=== PATIENT | female | born 1950 | race Hispanic/Latino ===

== ENCOUNTER → 2021-12-16 | Outpatient (CLI) | payer OTHER | END | disposition home or self-care (01) | LOC: SHCH 13:01 | PROVIDERS: ATTEND Internal Medicine Cardiovascular Disease | DX: I87.2 Venous insufficiency (chronic) (peripheral) (principal) | CPT/HCPCS: 93970 ==

== ENCOUNTER → 2023-12-05 | Outpatient (CLI) | payer OTHER | END | disposition home or self-care (01) | LOC: SHCH 12:48 | PROVIDERS: ATTEND Internal Medicine Cardiovascular Disease | DX: I87.2 Venous insufficiency (chronic) (peripheral) (principal) | CPT/HCPCS: 93971 ==

== ENCOUNTER → 2024-11-30 | Outpatient (CLI) | payer OTHER ==
[~2024-11-30] MED LIST: IOHEXOL 350 MG/ML 100ML INFUS..BTL IV ONE
--- NOTE | 2024-12-02 16:41 | CARDIOLOGY ---
RAD REPORT: [facility] CT ANGIO RADIOLOGY REPORT: CORONARY CT ANGIOGRAPHY DATE: Nov 30, 2024 QUALITY: Excellent CLINICAL HISTORY AND INDICATION: [ chest pain ] TECHNIQUE: After obtaining a preliminary digital photo printer image, contrast imaging performed on an [employer] [id number] scanner. A dedicated, limited window, coronary imaging protocol was used, with single breath-hold, retrospective ECG gating, and automated arrhythmia rejection. 100 cc of low osmolar contrast agent: Omnipaque 350 was delivered via a 18-gauge IV catheter in the right antecubital fossa, using a power injector and followed by 60 cc of normal saline bolus as a chaser. Collimated images were reformatted at 0.5 mm intervals, and sent to an offline independent workstation for interpretation, using 3D anatomic reconstructions: Curved multiplanar reconstructions, maximum intensity projections, and multiplanar imaging. 5 mg IV metoprolol was administered prior to scanning. 0.4 mg SL nitroglycerin was given. CORONARY ARTERY DESCRIPTIONS: The coronary arteries arise in normal position. Left main coronary artery: Normal caliber vessel that bifurcates into the LAD and LCx. There is non-calcified plaque in the mid to distal left main with 20- 30% stenosis. Left anterior descending coronary artery: Normal caliber vessel and gives rise to diagonal and septal branches. There is mixed calcified and noncalcified plaque in the mid LAD with 70-80% stenosis. Left circumflex coronary artery: Normal caliber, nondominant and gives rise to a large OM branch. The LCx is not well visualized due to motion artifact. Right coronary artery: Large, dominant vessel giving rise to the PL and PDA branches. The RCA is heavily calcified proximally with 60-70% stenosis. This study quality is limited by motion artifact from ectopy. Thoracic Aorta: Normal diameter. Alexus Wu MD Cardiovascular Disease [facility] ALEXUS WU MD Dec 02, 2024 16:41
== END | disposition home or self-care (01) ==
LOC: RAH 08:14
PROVIDERS: ATTEND Internal Medicine Cardiovascular Disease
DX: I25.10 Atherosclerotic heart disease of native coronary artery without angina pectoris (principal); R07.9 Chest pain, unspecified
CPT/HCPCS: 75574; J3490; Q9967

== ENCOUNTER 2025-01-09 05:43 | Day surgery (SDC) | payer OTHER ==
[2025-01-07 10:35] VITALS: BP 152/71; PULSE 67; RESP 18; TEMP 97.4
[2025-01-07 10:38] LABS: IMMATURE GRANULOCYTE ABSOLUTE 0.02 K/uL (0-1); NUCLEATED RED BLOOD CELLS 0.0 % (0.0-0.19); PLATELET COUNT (AUTO) 192 K/uL (130-400); RED BLOOD CELL COUNT(AUTO) 5.28 MIL/uL (4.00-5.50); RED CELL DISTRIBUTION WIDTH 14.2 % (11.0-15.5); WHITE BLOOD COUNT (AUTO) 5.8 K/uL (4.8-10.8)
[2025-01-07 10:40] LABS: APPEARANCE,URINE CLEAR (CLEAR); GLUCOSE, URINE (UA) NEGATIVE (NEGATIVE); LEUKOCYTE ESTERASE ,URINE NEGATIVE Leu/uL (NEGATIVE); NITRATE,URINE NEGATIVE (NEGATIVE); OCCULT BLOOD,URINE +- (TRACE) (NEGATIVE)
[2025-01-07 10:42] LABS: ADD UA MICROSCOPIC YES; SQUAMOUS EPITHELIAL CELL,UR Rare /HPF (0-2)
--- NOTE | 2025-01-07 10:45 | EKG ---
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
[2025-01-07 10:55] LABS: CREATININE 0.9 mg/dL (0.5-1.0); GLOMERULAR FILTR. RATE CALC 67.0 mL/min (>90); GLUCOSE,RANDOM 106.0 mg/dL (70-105); SODIUM SERUM 138.0 mmol/L (136-145); UREA NITROGEN, BLOOD 18.0 mg/dL (7-18)
[2025-01-07 11:22] LABS: INR 0.97 (0.85-1.15)
--- NOTE | 2025-01-07 11:32 | HMCIMG ---
CHEST 1VW REASON: PRE OP COMPARISON: None available FINDINGS: Single view of the chest was obtained. There is hyperaeration of lungs with flattening of both hemidiaphragms suggesting of early chronic obstructive disease Lungs are clear. Heart size is normal. There is uncoiling atherosclerotic change of thoracic aorta. There is no pulmonary vascular congestion. Mediastinum and bony thorax appear unremarkable. Mild osteopenia of the bony thorax. IMPRESSION: 1. Early chronic obstructive pulmonary disease. 2. No evidence of airspace consolidation or pulmonary venous congestion
[~2025-01-09] VITALS: Ht 152.4 cm; Wt 67.4 kg
[2025-01-09] VITALS (9 sets, daily range): BP systolic 111–148; BP diastolic 56–89; PULSE 61–80; RESP 10–16; TEMP 97.2–97.6
[~2025-01-09 05:43] MED LIST changes: +ALEN70SO4 PO; +ASPI-1443 PO; +ATOR40TA69 PO; +CARV3.12 PO; +CLON0.1T PO; +HYDR12.54 PO; -IOHEXOL 350 MG/ML 100ML INFUS..BTL IV ONE; +ISOS60TA77 PO; +LATA2.5D7 OU; +LOSA50TA64 PO; +PANT40TA54 PO
[2025-01-09] MEDS: 0.9%NACL 1000ML 1,000 ML IV SCH (06:38)
[2025-01-09] MEDS ORDERED: LIDOCAINE HCL 400MG/20ML VIAL ONE (07:11)
[2025-01-09] MEDS ORDERED: IOHEXOL 350 MG/ML 100ML INFUS..BTL IV ONE (07:11)
[2025-01-09] MEDS ORDERED: NITROGLYCERIN 50MG VIAL ONE (07:12)
[2025-01-09] MEDS ORDERED: HEParin-NS 1,000 UNIT/500 ML 1,000 ML IV ONE (07:12)
[2025-01-09] MEDS ORDERED: MIDAZOLAM HCL 1 MG/ML 2ML VIAL ONE (07:41)
[2025-01-09] MEDS ORDERED: 0.9%NACL 1000ML 1,000 ML IV SCH (09:00)
[2025-01-09] MEDS ORDERED: GLUCAGON 1MG KIT 1 MG ML IM PRN (09:00)
[2025-01-09] MEDS ORDERED: DEXTROSE 50%-WATER 50 ML DISP.SYRIN IV PRN (09:00)
--- NOTE | 2025-01-09 09:18 | PRN ---
PROCEDURE NOTE Indications: 1. Chest pain, CCS 3 symptoms. 2. Abnormal coronary CTA done on 11/30/2024 3. Normal left ventricle systolic function, estimated LVEF 55-60% by echocardiogram done on 09/15/2020 4. Chronic venous insufficiency status post placement stent in the bilateral common iliac and external iliac veins done on 06/07/2022 and 09/22/2022 and clear vein ablation on the right greater saphenous vein done on 12/02/2023 5. HTN 6. HLP Procedures: LHC, coronary angiogram, femoral angiogram, renal angiogram Introduction: After informed written consent was obtained, the patient was brought to the Catheterization Lab in the usual fasting state. Following sterile prep and drape, a time out was performed, then moderate sedation was administered, 1mg of Versed and 50mcg of Fentanyl, then 1% Lidocaine was infiltrated into the right femoral groin. Using a Modified Seldinger technique, a 6Fr Sheath was inserted into the right common femoral artery. While under fluoroscopic guidance, diagnostic coronary catheters were advanced over a wire into the central circulation where they were aspirated, flushed and placed to pressure monitoring, once the wire was removed. Coronary Angio: The left and right coronary arteries were engaged with appropriate catheters and angiography was performed under continuous pressure monitoring. Left Heart Catheterization: A JR4 catheter was inserted into the LV and the pressure was recorded, then the catheter was removed from the LV. Cardiac Findings: Right dominant system LM: Large caliber vessel with mild luminal irregularities. The vessel bifurcates into the LAD and LCX. LAD: Medium caliber vessel with diffuse 80% stenosis in the proximal and proximal LAD. CASSIDY 3 blood flow distally. Diagonal one: Small caliber vessel (1.5-2.0 mm) with 90% stenosis in the proximal diagonal 1 LCx: Large caliber vessel with 20% stenosis in the ostial LCX, 30% stenosis in the mid LCX, and 70% stenosis in the mid to distal LCX. OM1: Small caliber vessel (1.25mm) with mild luminal irregularities RCA: Medium caliber vessel with 30% stenosis in the ostial RCA and diffuse 80% stenosis in the proximal to mid RCA. The rest of the vessel has mild luminal irregularities RPDA: Small caliber vessel with mild luminal irregularities RPLV: Medium caliber vessel with mild luminal irregularities LVEDP: 6mmHG Renal angiogram: The renal arteries were engaged with a JR4 catheter. The left renal system has two renal arteries. There is 30% stenosis in the superior renal artery. There was no significant stenosis in the inferior renal artery. The right renal system has one artery. There is 20% stenosis in the proximal segment of the right renal artery. Medications given: Versed 2mg, Fentanyl 75mcg Coronary Intervention: None Complications: None Conscious Sedation Monitoring: Under my direct order and supervision, medication for moderate conscious sedation was administered by the nursing staff and the patients level of consciousness and physiological status was monitored by an independent trained nurse. Closure of Access Site: After the case completed the sheath was pulled and a 6Fr Angioseal was deployed in the right common femoral artery without complication. Conclusion: 1. Chest pain, CCS III symptoms 2. 3V + branch vessel CAD 3. Abnormal coronary CTA done on 11/30/2024 4. Normal left-sided filling pressures, LVEDP 6 mmHg 5. Normal left ventricle systolic function, estimated LVEF 55-60% by echocardiogram done on 09/15/2020 6. Chronic venous insufficiency status post placement stent in the bilateral common iliac and external iliac veins done on 06/07/2022 and 09/22/2022 and clear vein ablation on the right greater saphenous vein done on 12/02/2023 7. HTN 8. HLP 9. No significant stenosis in the bilateral renal arteries. Recommendation: 1. Continue goal-directed medical therapy 2. 4 hours of bedrest. 3. Groin precautions. 4. Start NS at 100 mL/hour x3 hours. 5. Okay to DC once bedrest is complete and the right groin is soft, and free of bruising, bleeding, and or hematoma formation. 6. No driving for the next 48 hours. 7. We will refer the patient for CABG evaluation, as an outpatient. 8. Please have the patient follow up with Dr. Mccauley in 1-2 weeks. KEEGAN MCCAULEY MD Jan 09, 2025 09:18
--- NOTE | 2025-01-09 12:29 | NUR ---
DISCHARGE GIVEN CD TO PATIENT H&P AND DIAGRAM OF HEART.
== END 2025-01-09 12:32 | disposition home or self-care (01) ==
LOC: DAH 05:43
PROVIDERS: ATTEND Internal Medicine Cardiovascular Disease
DX: R07.9 Chest pain, unspecified (principal); I25.10 Atherosclerotic heart disease of native coronary artery without angina pectoris; J44.9 Chronic obstructive pulmonary disease, unspecified; I87.2 Venous insufficiency (chronic) (peripheral); I70.1 Atherosclerosis of renal artery; I45.10 Unspecified right bundle-branch block; I10 Essential (primary) hypertension; E78.5 Hyperlipidemia, unspecified; I25.2 Old myocardial infarction; Z95.5 Presence of coronary angioplasty implant and graft; Z79.82 Long term (current) use of aspirin
CPT/HCPCS: 80048; 83880; 85025; 85610; 85730; 81001; 36415; 71045; 93005; 93458; 36252; 99156; 99157 ×2; C1894 ×2; C1760; Q9965 ×2; J3010; J3490 ×2; J7030; J2250; J1644; Q9967; A4215; A4222; A4221; A4663; A4216; A4606; A4223 ×3; 96360; 96361